=== PATIENT | male | born 1980 | race Caucasian/White ===

== ENCOUNTER 2018-08-13 22:31 | Emergency (ER) | payer SELFPAY ==
[2018-08-13 22:39] VITALS: BMI 20.2
--- NOTE | 2018-08-13 22:58 | PDOC ---
History of Present Illness - General Chief Complaint: Pain Stated Complaint: TESTIES PROBLEM, PAIN Time Seen by Provider: 08/13/18 22:47 History Source: Patient Exam Limitations: No Limitations - History of Present Illness Travel History: No Initial Comments: 08/14/18 00:06 Best Contact: PCP:Dr. Isaiah Vann Pmhx: Asthma/no h/o intubation or recent admissions Pshx: 2018: Vascectomy Allergies: NKDA FH:0 Social Hx: Cigarettes/ 0 Alcohol/ social Drugs/0 38-year-old male who presents to the emergency department complaining of a pipe presents 7 hours. Patient states he was seen at his urologist's office/Dr. Dahlia Silverio for a penile Doppler due to E.D. Patient states the result of the procedure was normal. Patient denies fever, chills, nausea/vomiting, headache, dizziness, lightheadedness, chest pain, shortness of breath, abdominal pains, flank pains, urinary symptoms: Frequency/urgency/hesitancy, hematuria. Patient states he just feels 4/10 pressure constant pain to his priapism. Past History - Past Medical History Allergies/Adverse Reactions: Allergies Allergy/AdvReac Type Severity Reaction Status Date / Time No Known Allergies Allergy Verified 04/06/13 19:36 Home Medications: Ambulatory Orders Levalbuterol Tartrate [Xopenex Hfa] 15 gm IH PRN PRN 04/06/13 Albuterol Sulfate [Ventolin -] 2 mg PO TID #15 tablet 08/14/18 Cephalexin Monohydrate [Keflex -] 500 mg PO BID #9 capsule 08/14/18 Asthma: Yes COPD: No - Suicide/Smoking/Psychosocial Hx Smoking Status: No Smoking History: Never smoked Number of Cigarettes Smoked Daily: 0 Review of Systems - Review of Systems Able to Perform ROS?: Yes Comments:: 08/13/18 23:06 CONSTITUTIONAL: Absent: fever, chills, diaphoresis, generalized weakness, malaise, loss of appetite HEENT: Absent: rhinorrhea, nasal congestion, throat pain, throat swelling, difficulty swallowing, mouth swelling, ear pain, eye pain, visual Changes CARDIOVASCULAR: Absent: chest pain, loss of consciousness, palpitations, irregular heart rate, peripheral edema RESPIRATORY: Absent: cough, shortness of breath, dyspnea with exertion, orthopnea, wheezing, stridor, hemoptysis GASTROINTESTINAL: Absent: abdominal pain, abdominal distension, nausea, vomiting, diarrhea, constipation, melena, hematochezia GENITOURINARY: +priaprism Absent: dysuria, frequency, urgency, hesitancy, hematuria, flank pain, genital pain MUSCULOSKELETAL: Absent: myalgia, arthralgia, joint swelling SKIN: Absent: rash, itching, pallor HEMATOLOGIC/IMMUNOLOGIC: Absent: easy bleeding, easy bruising, lymphadenopathy, frequent infections ENDOCRINE: Absent: unexplained weight gain, unexplained weight loss, heat intolerance, cold intolerance NEUROLOGIC: Absent: headache, focal weakness or paresthesias, dizziness, unsteady gait, seizure, mental status changes, bladder or bowel incontinence PSYCHIATRIC: Absent: anxiety, depression, suicidal or homicidal ideation, hallucinations. Is the patient limited Citizen [place] proficient: No *Physical Exam - Vital Signs Last Vital Signs Temp Pulse Resp BP Pulse Ox 98.2 F 70 18 130/83 100 08/13/18 22:36 08/13/18 22:36 08/13/18 22:36 08/13/18 22:36 08/13/18 22:36 - Physical Exam Comments: 08/13/18 23:06 GENERAL: Well developed, well nourished. Awake and alert. No acute distress. HEENT: Normocephalic, atraumatic. PERRLA, EOMI. No conjunctival pallor. Sclera are non- icteric. Moist mucous membranes. Oropharynx is clear. NECK: Supple. Full ROM. No JVD. Carotid pulses 2+ and symmetric, without bruits. No thyromegaly. No lymphadenopathy. CARDIOVASCULAR: Regular rate and rhythm. No murmurs, rubs, or gallops. Distal pulses are 2+ and symmetric. PULMONARY: No evidence of respiratory distress. Lungs clear to auscultation bilaterally. No wheezing, rales or rhonchi. ABDOMINAL: +priaprism Soft. Non-tender. Non-distended. No rebound or guarding. No organomegaly. Normoactive bowel sounds. MUSCULOSKELETAL Normal range of motion at all joints. No bony deformities or tenderness. No CVA tenderness. EXTREMITIES: No cyanosis. No clubbing. No edema. No calf tenderness. SKIN: Warm and dry. Normal capillary refill. No rashes. No jaundice. NEUROLOGICAL: Alert, awake, appropriate. Cranial nerves 2-12 intact. No deficits to light touch and temperature in face, upper extremities and lower extremities. No motor deficits in the in face, upper extremities and lower extremities. Normoreflexic in the upper and lower extremities. Normal speech. Toes are down- going bilaterally. Gait is normal without ataxia. PSYCHIATRIC: Cooperative. Good eye contact. Appropriate mood and affect. ED Treatment Course - LABORATORY CBC & Chemistry Diagram: 08/13/18 23:00 08/13/18 23:00 Progress Note - Progress Note Progress Note: 2258hrs: Called Dr. Sonido Vann [phone] (pt's urologist) 2314hrs: Spoke to Dr. Marcelo Vann/ gena for: IV/ D5W wide open Sudafed 90 mg by mouth stat Valium 10 mg by mouth stat Ephedrine 100 mg/ For Dr. Marcelo Vann 's procedure 2 inch Lenard wrap (2) 14-gauge Angiocath 1% lidocaine without epi 27-gauge insulin syringe Ice pack to the priapism 2351hrs: Dr. Dahlia Silverio/urologist in the ED to consult with pt at bedside 0040hrs: Priaprism resolved after procedure by Dr. Silverio/urology *DC/Admit/Observation/Transfer Diagnosis at time of Disposition: Priapism - Discharge Dispostion Condition at time of disposition: Stable Decision to Admit order: No - Prescriptions Prescriptions: Albuterol Sulfate [Ventolin -] 2 mg PO TID #15 tablet Cephalexin Monohydrate [Keflex -] 500 mg PO BID #9 capsule - Referrals Referrals: Isaiah Vann MD [Primary Care Provider] - Dahlia iSlverio S.A. [Other Staff,non-medical] - - Patient Instructions Printed Discharge Instructions: DI for Priapism Additional Instructions: Prescription: Keflex 500 mg take 1 tablet 3 times a day for the next 5 days Be sure to call Dr. Silverio's office to make an appointment for next week Return back to the emergency department for any concerns - Post Discharge Activity
[2018-08-13] MEDS ORDERED: PSEUDOEPHEDRINE HCL 30 MG TABLET PO ONE (23:10)
[2018-08-13] MEDS ORDERED: ePHEDrine SULFATE 50 MG/1 ML AMPULE IVPUSH ONE (23:13)
[2018-08-13] MEDS ORDERED: PSEUDOEPHEDRINE HCL 60 MG TABLET ONE (23:16)
[2018-08-13] MEDS ORDERED: ePHEDrine SULFATE 50 MG/1 ML AMPULE ONE (23:22)
[2018-08-13 23:30] LABS: BASO % 0.6 % (0-2.0); HEMATOCRIT 45.2 % (35.4-49); HEMOGLOBIN 15.3 GM/dL (11.7-16.9); LYMPH % 29.2 % (8-40); MCH 31.1 pg (25.7-33.7); MCHC 33.9 g/dl (32.0-35.9); MEAN CELL VOLUME 91.8 fl (80-96); MEAN PLT VOLUME 7.8 fl (7.5-11.1); MONO % 8.1 % (3.8-10.2); NEUT % 59.1 % (42.8-82.8); PLATELET COUNT 212 K/MM3 (134-434); RBC 4.92 M/mm3 (4.00-5.60); RDW 13.1 % (11.9-15.9); WHITE BLOOD COUNT 7.1 K/mm3 (4.0-10.0)
[2018-08-13] MEDS ORDERED: diazePAM 5 MG TABLET PO ONE (23:30)
[2018-08-13] MEDS ORDERED: diazePAM 5 MG TABLET ONE (23:32)
[2018-08-13 23:34] LABS: URINE APPEARANCE CLEAR; URINE BILIRUBIN NEGATIVE (<2.0 mg/dL); URINE COLOR STRAW; URINE GLUCOSE (UA) NEGATIVE (NEGATIVE); URINE KETONE NEGATIVE (NEGATIVE); URINE LEUK ESTERASE NEGATIVE (NEGATIVE); URINE NITRITE NEGATIVE (NEGATIVE); URINE PROTEIN NEGATIVE (NEGATIVE); URINE UROBILINOGEN NEGATIVE mg/dL (0.2-1.0)
[2018-08-13] MEDS ORDERED: LIDOCAINE HCL 1%, 10 MG/ML (20ML VIAL) ONE (23:42)
[2018-08-13 23:44] LABS: COCAINE, UR NEGATIVE ng/ml (CUTOFF=300); METHADONE, UR NEGATIVE ng/ml (CUTOFF=300); OPIATES, URI NEGATIVE ng/ml (CUTOFF=300); PHENCYCLIDINE,URINE NEGATIVE ng/ml (CUTOFF=25); URINE AMPHETAMINES NEGATIVE ng/ml (CUTOFF=500); URINE BARBITURATES NEGATIVE ng/ml (CUTOFF=200); URINE BENZODIAZEPINES NEGATIVE ng/ml (CUTOFF=200)
[2018-08-13 23:52] LABS: ALBUMIN 4.4 g/dl (3.4-5.0); ALK PHOS 80 U/L (45-117); ANION GAP 6 MMOL/L (8-16); BILIRUBIN,TOTAL 0.5 mg/dL (0.2-1); BLOOD UREA NITROGEN 15 mg/dL (7-18); CALCIUM 9.3 mg/dL (8.5-10.1); CHLORIDE 102 mmol/L (98-107); CO2 30 mmol/L (21-32); CREATININE 0.9 mg/dL (0.55-1.3); GLUCOSE,RANDOM 87 mg/dL (74-106); POTASSIUM 4.2 mmol/L (3.5-5.1); SGOT/AST 33 U/L (15-37); SGPT/ALT 41 U/L (13-61); SODIUM 137 mmol/L (136-145); TOT PROT 7.8 g/dl (6.4-8.2)
[2018-08-14] MEDS ORDERED: CEPHALEXIN MONOHYDRATE 500 MG CAPSULE (UD) PO ONE (00:38)
--- NOTE | 2018-08-14 00:43 | PN ---
Progress Note (short form) - Note Progress Note: UROLOGY NOTE 38 Y/O Male patient with history of ED underwent penile Doppler and Bimix injection today morning, he developed Priapism, pain and prolonged erection. O/E rigid erection ephidrine 100 mg used for cavernosal injection and penile tourniquet for 10 min with patient connected to monitor HR and BP pain decreased and detumesence completely within 10 min. Plan : keflex 500 mg TID Albuterol 2mg TID Ibubrufen 400mg Bid RTC 1 Week.
[2018-08-14] MEDS ORDERED: CEPHALEXIN MONOHYDRATE 500 MG CAPSULE (UD) ONE (00:54)
[2018-08-14 01:43] VITALS: BP 134/71; PULSE 77; TEMP 98.5
== END 2018-08-14 01:43 | disposition home or self-care (01) ==
LOC: JER 22:31
PROC: 3E1N38Z Irrigation of Male Reproductive using Irrigating Substance, Percutaneous Approach (ICD-10-PCS; principal; 2018-08-13)
PROC: 3E033GC Introduction of Other Therapeutic Substance into Peripheral Vein, Percutaneous Approach (ICD-10-PCS; 2018-08-13)
DX: N48.30 Priapism, unspecified (principal)
CPT/HCPCS: 36415; 80053; 80307; 81003; 85025; 87086; 99282-25